=== PATIENT | male | born 1990 | race Asian ===

== ENCOUNTER → 2016-03-05 | Outpatient (CLI) | payer BC ==
--- NOTE | 2016-03-05 13:59 | Diagnostic Imaging Report ---
Indication: 26-year-old male with history of surgery involving the great toe 2 weeks ago, now presenting with infection. Technique: Triple phase bone scan performed with intravenous injection of 26.5 mCi of technetium 99m MDP. Blood flow, blood pool, delayed planar imaging of both feet performed. Comparison: None Findings: There is increased blood flow to the right great toe. Blood pole images show increased soft tissue uptake focally in this region. Delayed planar images demonstrate increased generalized uptake involving the phalanges as well as the head of the first metatarsal. The degree of uptake in these 3 bones is fairly equal. Osteomyelitis is not excludable. However, recent surgery to definitely account for the increased delayed uptake and could also partially account for soft tissue hyperemia and increased blood flow. Correlation should be made with the specific area of surgery and the nature of the procedure performed. MRI may be more specific and should be considered for further evaluation. Impression: Nonspecific positive triple phase scan involving first MTP joint and both phalanges. Osteomyelitis is not excludable, but the findings may be accounted for by the recent surgery depending on the location and specifics of the surgery performed. Please correlate clinically.
== END | disposition home or self-care (01) ==
LOC: NUM 10:41
DX: M86.9 Osteomyelitis, unspecified (principal)
CPT/HCPCS: 78315; A4641

== ENCOUNTER → 2016-03-09 | Outpatient (CLI) | payer BC ==
--- NOTE | 2016-03-09 16:41 | Diagnostic Imaging Report ---
Indication: First nailbed infection Technique: Right forefoot imaging utilizing multiplanar T1 fast spin-echo, proton and T2 fast spin-echo with fat saturation, and STIR. Comparison: None Findings: There is edema in the area of the nailbed involving the hallux. The underlying distal phalange appears normal in signal on both T1 and T2-weighted images. There is no evidence of osteomyelitis. Impression: No evidence of osteomyelitis. Some edema in the area of the nailbed noted consistent with the given history of infection.
== END | disposition home or self-care (01) ==
LOC: MRI 09:12
DX: M86.9 Osteomyelitis, unspecified (principal)